=== PATIENT | male | born 1995 | race Caucasian/White ===

== ENCOUNTER 2017-02-18 16:55 | Emergency (ER) | payer BC ==
[2017-02-18 17:18] VITALS: TEMP 98.8; BMI 39.2
--- NOTE | 2017-02-18 17:51 | PDOC ---
History of Present Illness - General History Source: Patient, Family Exam Limitations: No Limitations <Grady Benito - Last Filed: 02/18/17 17:56> - History of Present Illness Initial Comments: 02/18/17 17:54 - General History Source: Patient, Family Exam Limitations: No Limitations - History of Present Illness Initial Comments: 02/18/17 17:52 The patient is a 21 year old male, accompanied by mother, with a significant past medical history of borderline hyperlipidemia, who presents to the emergency department complaining of burning chest pain since approximately 15: 30. The patient describes his pain as a burning sensation. He reports the pain is worse with inspiration occ.,and nonradiating. The patient denies any associated shortness of breath, diaphoresis, palpitations, or lower extremity edema. The patient reports he takes supplements for his workout regimen. He reports taking a preworkout and admits he recently began taking a new "fat burner pill"(Performix SST) just started yesterday. The patient denies any hormonal supplements. 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 As per mother, the patient recently changed his diet, eliminating carbohydrates and increasing protein content in meals. The patient denies any abdominal pain, nausea, vomiting, diarrhea, constipation, or changes in urination patterns. The patient denies any fever, chills, cough, headache, or dizziness. The patient denies any recent travel. Patient states the pain lasted about 2 hours and is now gone He denies any leg swelling or recent travel Allergies: Tobamycin, cats, dogs. Past Surgical History: None reported. Family History: Father: CO( at age 33); Mother: Diabetes, Cancer. Social History: Current everyday smoker(8 cigarettes per day). Social ETOH use. Denies drug use. PCP: Dr. Morales <Grady Benito - Last Filed: 02/18/17 17:53> <Ailyn Conley - Last Filed: 02/19/17 12:56> - General Chief Complaint: Chest Pain Stated Complaint: LEFT CHEST PAIN Time Seen by Provider: 02/18/17 17:25 Past History <Grady Benito - Last Filed: 02/18/17 17:56> - Immunization History Immunization Up to Date: Yes - Psycho/Social/Smoking Cessation Hx Anxiety: No Suicidal Ideation: No Smoking History: Current every day smoker Have you smoked in the past 12 months: Yes Number of Cigarettes Smoked Daily: 8 Information on smoking cessation initiated: Yes 'Breaking Loose' booklet given: 05/06/14 Hx Alcohol Use: Yes (WEEKENDS) Drug/Substance Use Hx: Yes (FORMER) Substance Use Type: Alcohol <Ailyn Conley - Last Filed: 02/19/17 12:56> - Past Medical History Allergies/Adverse Reactions: Allergies Allergy/AdvReac Type Severity Reaction Status Date / Time tobramycin Allergy Unknown Verified 02/18/17 18:37 cats,dogs Allergy Unknown Uncoded 02/14/14 15:57 Home Medications: Ambulatory Orders NK [No Known Home Medication] 02/18/17 *Physical Exam - Vital Signs Last Vital Signs Temp Pulse Resp BP Pulse Ox 98.8 F 80 16 153/92 98 02/18/17 17:03 02/18/17 17:03 02/18/17 17:03 02/18/17 17:03 02/18/17 17:03 <Grady Benito - Last Filed: 02/18/17 17:56> - Vital Signs Last Vital Signs Temp Pulse Resp BP Pulse Ox 98.8 F 80 16 153/92 98 02/18/17 17:03 02/18/17 17:03 02/18/17 17:03 02/18/17 17:03 02/18/17 17:03 - Physical Exam Comments: 02/18/17 17:49 Physical exam Last Vital Signs Temp Pulse Resp BP Pulse Ox 98.8 F 80 16 153/92 98 02/18/17 17:03 02/18/17 17:03 02/18/17 17:03 02/18/17 17:03 02/18/17 17:03 GENERAL: The patient is awake, alert, and fully oriented, and in no apparent distress. HEAD: Normal with no signs of trauma. EYES: sclera anicteric, conjunctiva are normal. ENT: Moist mucous membranes. NECK: Normal range of motion, supple LUNGS: Breath sounds equal, clear to auscultation bilaterally. No wheezes, and no crackles. HEART: Regular rate and rhythm, normal S1 and S2 without murmur, rub or gallop. ABDOMEN: Soft, nontender, normoactive bowel sounds. No guarding, no rebound. No masses appreciated. EXTREMITIES: Normal range of motion, no edema. No clubbing or cyanosis. No cords, erythema, or tenderness. NEUROLOGICAL: Cranial nerves II through XII grossly intact. Normal speech, normal gait. PSYCH: Normal mood, normal affect. SKIN: Warm, Dry, normal turgor, no rashes or lesions noted. <Ailyn Conley - Last Filed: 02/19/17 12:56> Heart Score/ECG Review - History History: Slightly suspicious - Electrocardiogram EKG: Normal - Age Age: </= 45 - Risk Factors Risk Factors Heart Score: Yes Positive family hx of cardiac disease Based on the list above the patient has:: 1-2 risk factors - Troponin Troponin: </= normal limit - Score Heart Score - Total: 1 <Ailyn Conley - Last Filed: 02/19/17 12:56> ED Treatment Course - LABORATORY CBC & Chemistry Diagram: 02/18/17 18:00 02/18/17 18:00 - RADIOLOGY Radiology Studies Ordered: Category Date Time Status CHEST PA & LAT [RAD] Stat Radiology 02/18/17 17:48 Ordered <Ailyn Conley - Last Filed: 02/19/17 12:56> Medical Decision Making - Medical Decision Making 02/18/17 17:50 EKG Normal sinus rhythm with respiratory sinus arrhythmia Otherwise completely normal EKG Heart score 1 02/18/17 18:58 Laboratory Results - last 24 hr 02/18/17 02/18/17 18:00 18:00 WBC 9.7 RBC 5.58 Hgb 16.6 Hct 49.2 H MCV 88.1 MCHC 33.9 RDW 12.3 Plt Count 270 MPV 9.7 Urine Color Yellow Urine Appearance Clear Urine pH 5.5 Ur Specific [place] 1.025 Urine Protein 2+ H Urine Glucose (UA) Negative Urine Ketones 2+ H Urine Blood Trace-lysed Urine Nitrite Negative Urine Bilirubin 1+ H Urine Urobilinogen 0.2 e.u/dl Ur Leukocyte Esterase Negative SIGN OUT Case discussed in detail with oncoming Emergency Physician including history, physical exam and ancillary studies. Oncoming Emergency Physician has assumed care for the patient and will complete the evaluation and treatment. Transfer of care to Dr. Sigala at 7 PM awaiting CMP and chest x-ray I am concerned about the proteinuria, and ketones in the urine, as well as 1+ bili, but do not have the results on CMP at this time or cardiac enzymes <Ailyn Conley - Last Filed: 02/19/17 12:56> *DC/Admit/Observation/Transfer - Attestations Scribe Attestion: 02/18/17 17:52 Documentation prepared by Grady Benito, acting as medical field representative for Ailyn Conley MD. <Grady Benito - Last Filed: 02/18/17 17:56> <Ailyn Conley - Last Filed: 02/19/17 12:56> Diagnosis at time of Disposition: Atypical chest pain - Discharge Dispostion Disposition: HOME Condition at time of disposition: Good - Referrals Referrals: Adal Morales MD [Primary Care Provider] - - Patient Instructions Printed Discharge Instructions: DI for Atypical Chest Pain Additional Instructions: Increase her fluid intake over the next week to at least 2 L of fluid a day. Using humidifier in your room at night to help moisten the air and help your mucous membranes not dry out so much and make you feel so dehydrated when you wake up. Return to the emergency department immediately with ANY new, persistent or worsening symptoms. Continue any medications as previously prescribed by your physician. You should follow up with your primary doctor as soon as possible regarding today's emergency department visit. . Please make sure your doctor reviews the results of your emergency evaluation. Thank you for coming to the Emergency Department today for your care. It was a pleasure to see you today. Please note that your evaluation is INCOMPLETE until you follow-up with your doctor.
[2017-02-18 18:41] LABS: PH,URINE 5.5 (4.5-8); URINE APPEARANCE Clear; URINE BILIRUBIN 1+ (NEGATIVE); URINE BLOOD Trace-lysed (NEGATIVE); URINE COLOR YELLOW; URINE GLUCOSE (UA) Negative (NEGATIVE); URINE KETONE 2+ (NEGATIVE); URINE LEUK ESTERASE Negative (NEGATIVE); URINE NITRITE Negative (NEGATIVE); URINE PROTEIN 2+ (NEGATIVE); URINE UROBILINOGEN 0.2 E.U/dl (0.2-1.0)
[2017-02-18 18:45] LABS: MCH 29.8 pg (25.7-33.7); MCHC 33.9 g/dl (32.0-35.9); MEAN CELL VOLUME 88.1 fl (80-96); MEAN PLT VOLUME 9.7 fl (7.5-11.1); PLATELET COUNT 270 K/MM3 (134-434); RDW 12.3 % (11.9-15.9); WHITE BLOOD COUNT 9.7 K/mm3 (4.0-10.8)
[2017-02-18 18:54] LABS: ALBUMIN 5.2 g/dl (3.5-5.0); ALK PHOS 50 U/L (32-92); ANION GAP 11 (8-16); CO2 26 mmol/L (22-28); CPK(DFH) 502 IU/L (38-174); CREATININE 0.8 mg/dl (0.6-1.3); GLUCOSE,RANDOM 80 mg/dl (74-106); SGOT/AST 35 U/L (10-42); SGPT/ALT 45 U/L (10-40); TOT PROT 8.3 g/dl (6.4-8.3)
[2017-02-18] MEDS ORDERED: SODIUM CHLORIDE 1,000 ML IV SCH (19:15)
[2017-02-18 19:22] LABS: TROPONIN I (DFP) < 0.03 ng/ml (0.03-0.50)
[2017-02-18 19:23] LABS: CK MB 6.2 ng/ml (0.3-4.0)
--- NOTE | 2017-02-18 20:17 | PDOC ---
*Physical Exam - Vital Signs Last Vital Signs Temp Pulse Resp BP Pulse Ox 98.8 F 80 16 153/92 98 02/18/17 17:03 02/18/17 17:03 02/18/17 17:03 02/18/17 17:03 02/18/17 17:03 ED Treatment Course - LABORATORY CBC & Chemistry Diagram: 02/18/17 18:00 02/18/17 18:00 - ADDITIONAL ORDERS Additional order review: Laboratory Results 02/18/17 02/18/17 02/18/17 18:00 18:00 18:00 Sodium 138 Potassium 4.2 Chloride 101 Carbon Dioxide 26 Anion Gap 11 BUN 19 H D Creatinine 0.8 Creat Clearance w eGFR > 60 Random Glucose 80 Calcium 10.0 Total Bilirubin 1.0 AST 35 D ALT 45 H D Alkaline Phosphatase 50 Creatine Kinase 502 H CK-MB (CK-2) 6.2 H Cancelled CK-MB (CK-2) Rel Index 1.2 Troponin I < 0.03 L Total Protein 8.3 Albumin 5.2 H Urine Color Yellow Urine Appearance Clear Urine pH 5.5 Ur Specific [place] 1.025 Urine Protein 2+ H Urine Glucose (UA) Negative Urine Ketones 2+ H Urine Blood Trace-lysed Urine Nitrite Negative Urine Bilirubin 1+ H Urine Urobilinogen 0.2 e.u/dl Ur Leukocyte Esterase Negative 02/18/17 18:00 RBC 5.58 MCV 88.1 MCHC 33.9 RDW 12.3 MPV 9.7 Progress Note - Progress Note Progress Note: Care of this patient was transferred to [place] from Dr. Burton at 1900 hrs. Patient is a very muscular large 21-year-old male who works out at the gym. Patient does use protein supplements prior to his workup. Patient recently started a new supplement. Patient comes in complaining of some chest pain. Patient's heart score is 1. Patient's troponin was negative however his CPK was mildly elevated at 502. Patient was given a liter of fluid. Patient had an EKG done that showed normal sinus rhythm and no acute changes. Patient discomfort is most likely secondary to skeletal muscle in nature and elevated CPK may have had some muscle breakdown as a result of his intense workouts. In addition to that there was some mild protein in his urine as well as one of his liver enzymes was mildly elevated. Discussed with patient the importance of the stopping alcohol consumption, stopping his supplements and following up with his doctor in 2-3 months for repeat of blood work and reevaluation. Patient's doctor is Dr. Morales who he will follow up with. *DC/Admit/Observation/Transfer Diagnosis at time of Disposition: Atypical chest pain - Discharge Dispostion Disposition: HOME Condition at time of disposition: Good Admit: No - Referrals Referrals: Adal Morales MD [Primary Care Provider] - - Patient Instructions Printed Discharge Instructions: DI for Atypical Chest Pain Additional Instructions: Increase her fluid intake over the next week to at least 2 L of fluid a day. Using humidifier in your room at night to help moisten the air and help your mucous membranes not dry out so much and make you feel so dehydrated when you wake up. Return to the emergency department immediately with ANY new, persistent or worsening symptoms. Continue any medications as previously prescribed by your physician. You should follow up with your primary doctor as soon as possible regarding today's emergency department visit. . Please make sure your doctor reviews the results of your emergency evaluation. Thank you for coming to the Emergency Department today for your care. It was a pleasure to see you today. Please note that your evaluation is INCOMPLETE until you follow-up with your doctor. - Post Discharge Activity
[2017-02-18 20:28] VITALS: BP 135/77; PULSE 78
[2017-02-18 22:38] LABS: URINE BACTERIA FEW /hpf (NEGATIVE); URINE RBC 0-1 /hpf (0-3); URINE WBC 0-2 (3-5)
--- NOTE | 2017-02-19 12:32 | EKG ---
Test Reason : Blood Pressure : / mmHG Vent. Rate : 069 BPM Atrial Rate : 069 BPM P-R Int : 152 ms QRS Dur : 086 ms QT Int : 396 ms P-R-T Axes : 027 056 041 degrees QTc Int : 424 ms NORMAL SINUS RHYTHM WITH SINUS ARRHYTHMIA NORMAL ECG NO PREVIOUS ECGS AVAILABLE Confirmed by RITA GAVIRIA MD ([id number]) on 02/19/2017 12:31:43 PM Referred By: PHANI Confirmed By:RITA GAVIRIA MD
== END 2017-02-18 20:45 | disposition home or self-care (01) ==
LOC: FER 16:55
DX: R07.89 Other chest pain (principal); F17.210 Nicotine dependence, cigarettes, uncomplicated
CPT/HCPCS: 36415; 71020-TC; 80053; 81003; 81015; 82550; 82553; 84484; 85027; 93005; 99284-25